=== PATIENT | female | born 1975 | race Caucasian/White ===

== ENCOUNTER → 2017-07-08 | Outpatient (CLI) | payer OTHER, BC ==
--- NOTE | 2017-07-08 09:19 | Diagnostic Imaging Report ---
EXAMINATION: 3 views of the right foot. INDICATION: Pain along the lateral aspect of the foot and bottom of the heel. FINDINGS: No fracture, dislocation or radiopaque foreign body seen. Joint alignment appears satisfactory. IMPRESSION: Unremarkable exam. Dictated by: Dictated on workstation # [id number]
== END ==
LOC: RAD 08:47
PROVIDERS: ATTEND Nurse Practitioner Family
DX: M79.671 Pain in right foot (principal)
CPT/HCPCS: 73630

== ENCOUNTER → 2017-10-14 | Outpatient (CLI) | payer BC, OTHER ==
--- NOTE | 2017-10-14 19:18 | Diagnostic Imaging Report ---
EXAMINATION: Digital mammogram bilateral screening. INDICATION: Screening. COMPARISON: This study was compared to the prior exam of 09/19/2011. At this time, there are no current complaints. The current study was also evaluated with a Computer Aided Detection (CAD) system. FINDINGS: In the interval since the prior exam the patient has undergone bilateral reduction mammoplasty. Both breasts are much smaller than noted on the prior exam. The fibroglandular tissue in each breast is heterogeneously dense. This does limit the sensitivity of this exam. There is no primary or secondary sign of malignancy noted. IMPRESSION: 1. There are postoperative changes consistent with bilateral reduction mammoplasty. There is no evidence for malignancy. 2. The patient should have her annual bilateral screening mammogram on schedule in October of 2018. ACR BI-RADS Category 1: Negative. Result letter will be mailed to the patient. Note: At least 10% of breast cancer is not imaged by mammography. Dictated by: Dictated on workstation # [id number]
== END ==
LOC: RAD 08:18
PROVIDERS: ATTEND Nurse Practitioner
DX: Z12.31 Encounter for screening mammogram for malignant neoplasm of breast (principal); Z98.890 Other specified postprocedural states
CPT/HCPCS: 77067

== ENCOUNTER 2018-09-05 22:02 | Emergency (ER) | payer BC ==
[~2018-09-05] VITALS: Ht 162.6 cm; Wt 70.3 kg
--- OUTSIDE RECORDS SUMMARY | 2018-09-05 22:07 | XMS REPORT | Continuity of Care Document ---
Author Author [facility] Organization [facility] Address Unknown Phone Unavailable Allergies Active Description Code Type Severity Reaction Onset Reported/Identified Relationship to Patient Clinical Status Yes cephalexin [id number] Drug Allergy Unknown N/A 12/11/2009 Yes penicillin G [id number] Drug Allergy Unknown N/A 12/11/2009 Yes Sulfa (Sulfonamide Antibiotics) [id number] Drug Allergy Unknown N/A 2009 Medications There is no data. Problems Date Dx Coded Attending Type Code Diagnosis Diagnosed By 08/22/2016 UNLISTED, UNLISTED A V70.5 HEALTH EXAMINATION OF DEFINED SUBPOPULATIONS 08/22/2016 UNLISTED, UNLISTED A Z02.1 ENCOUNTER FOR PRE-EMPLOYMENT EXAMINATION 10/08/2016 Ot V76.12 OTH SCREEN MAMMO-MALIGN NEOPLASM OF JOSE 07/09/2017 LISANDRO CANSECO Ot M79.671 PAIN IN RIGHT FOOT 07/10/2017 [place]AN LISANDRO L[place]ERS Ot M79.671 PAIN IN RIGHT FOOT 07/10/2017 LISANDRO CANSECO Ot M79.671 PAIN IN RIGHT FOOT 07/11/2017 LISANDRO CANSECO Ot M79.671 PAIN IN RIGHT FOOT 08/21/2017 LISANDRO CANSECO Ot M79.671 PAIN IN RIGHT FOOT 10/10/2017 LISANDRO CANSECO Ot M79.671 PAIN IN RIGHT FOOT 10/15/2017 KING SHELL Ot Z12.31 ENCNTR SCREEN MAMMOGRAM FOR MALIGNANT NE 10/15/2017 KING SHELL Ot Z98.890 OTHER SPECIFIED POSTPROCEDURAL STATES 10/27/2017 LISANDRO CANSECO Ot M79.671 PAIN IN RIGHT FOOT 10/27/2017 LISANDRO CANSECO Ot M79.671 PAIN IN RIGHT FOOT 10/27/2017 K[place] SHELL Ot Z12.31 ENCNTR SCREEN MAMMOGRAM FOR MALIGNANT NE 10/27/2017 K[place] SHELL Ot Z98.890 OTHER SPECIFIED POSTPROCEDURAL STATES 10/29/2017 K[place] SHELL Ot Z12.31 ENCNTR SCREEN MAMMOGRAM FOR MALIGNANT NE 10/29/2017 K[place] SHELL Ot Z98.890 OTHER SPECIFIED POSTPROCEDURAL STATES Procedures There is no data. Results Test Result Range - 08/22/16 15:30 Printing Assistant Janetyadira Eduardos Donor ID By Photo ID Location [place] Reason For Test Pre-Employment Temperature In Range YES Deg F 90.00-100.00 Urine Amphetamines NEGATIVE Urine Barbiturates NEGATIVE Urine Benzodiazepines NEGATIVE Urine Cocaine NEGATIVE Urine MDMA NEGATIVE Urine Methadone NEGATIVE Urine Methamphetamines NEGATIVE Urine Opiates NEGATIVE Urine Oxycodone NEGATIVE Urine PCP NEGATIVE Urine THC Metabolite NEGATIVE Encounters ACCT No. Visit Date/Time Discharge Status Pt. Type Provider Facility Loc./Unit Complaint [id number] 10/14/2017 08:18:00 10/14/2017 23:59:59 CLS Outpatient K[facility] RAD SCREENING [id number] 07/08/2017 08:47:00 07/08/2017 23:59:59 CLS Outpatient LISANDRO CANSECO [facility] RAD M79.671 [id number] 04/07/2013 07:50:00 04/07/2013 23:59:59 CLS Outpatient [id number] 09/19/2011 08:53:00 Document Registration [id number] 05/25/2018 16:48:00 05/25/2018 23:59:00 DIS Outpatient SELF, PHY [id number] 05/29/2017 12:11:00 05/29/2017 23:59:00 DIS Outpatient SELF, PHY [id number] 08/22/2016 15:04:00 08/22/2016 23:59:00 DIS Outpatient UNLISTED, UNLISTED
[2018-09-05] MEDS ORDERED: LACTATED RINGERS 1,000 ML IV ONE (22:18)
[2018-09-05 22:30] LABS: BASOPHILS % (AUTO) 1 % (0-10); EOSINOPHILS # (AUTO) 0.2 10^3/uL (0.0-0.3); EOSINOPHILS % (AUTO) 3 % (0-10); HEMATOCRIT 36 % (35-52); HEMOGLOBIN 12.1 G/DL (11.5-16.0); LYMPHOCYTES # (AUTO) 2.5 X 10^3 (1.0-4.0); LYMPHOCYTES % (AUTO) 39 % (12-44); MEAN CORPUSCULAR HEMOGLOBIN 29 PG (25-34); MEAN CORPUSCULAR HGB CONC 34 G/DL (32-36); MEAN CORPUSCULAR VOLUME 88 FL (80-99); MEAN PLATELET VOLUME 10.1 FL (7.4-10.4); MONOCYTES # (AUTO) 0.6 X 10^3 (0.0-1.0); MONOCYTES % (AUTO) 10 % (0-12); NEUTROPHILS # (AUTO) 3.1 X 10^3 (1.8-7.8); NEUTROPHILS % (AUTO) 48 % (42-75); PLATELET COUNT 245 10^3/uL (130-400); RED CELL DISTRIBUTION WIDTH 12.8 % (10.0-14.5); WHITE BLOOD COUNT 6.5 10^3/uL (4.3-11.0)
[2018-09-05 22:41] LABS: PROTHROMBIN TIME PATIENT 13.6 SEC (12.2-14.7)
[2018-09-05 22:50] LABS: ALANINE AMINOTRANSFERASE 18 U/L (0-55); ALKALINE PHOSPHATASE 47 U/L (40-136); BILIRUBIN,TOTAL 0.3 MG/DL (0.1-1.0); BUN/CREATININE RATIO 18; CALCIUM 8.9 MG/DL (8.5-10.1); CARBON DIOXIDE 22 MMOL/L (21-32); CHLORIDE 102 MMOL/L (98-107); CREATININE SERUM 0.83 MG/DL (0.60-1.30); GFR ESTIMATED > 60; GLUCOSE 126 MG/DL (70-105); MAGNESIUM 2.2 MG/DL (1.8-2.4); POTASSIUM 3.4 MMOL/L (3.6-5.0); SODIUM 135 MMOL/L (135-145); TOTAL PROTEIN 6.6 GM/DL (6.4-8.2)
--- NOTE | 2018-09-05 22:56 | ED General ---
General Chief Complaint: General Problems/Pain Stated Complaint: DIZZY,SHAKING Nursing Triage Note: PT REPORTS 1 HOUR AGO STARTING TO FEEL DIZZY, SHAKING, AND HAVING METALLIC TASTE IN HER MOUTH. PT AND STATED THIS STARTED WHILE PT WAS DOWNLOADING APPS TO A NEW TABLET. Nursing Sepsis Screen: No Definite Risk Source of Information: Patient, Spouse History of Present Illness Date Seen by Provider: Sep 05, 2018 Time Seen by Provider: 22:10 Initial Comments PT ARRIVES VIA POV PT STATES AN HOUR AGO, SHE WAS SITTING AND PUTTING "APPS" ON HER NEW TABLET AND SUDDENLY BECAME DIZZY AND SHAKEY STATES SHE HAD A METAL TASTE IN HER MOUTH STATES THEN SHE STARTED TREMBLING--"LIKE A TUNING FORK THROUGH MY WHOLE BODY" "IS LIKE I HAVE NO CONTROL-LIKE WHEN I'M TAKING STEPS IT'S LIKE I'M VIBRATING LIKE A TUNING FORK" NO PAIN ANYWHERE NO HEADACHE NO SPINNING SENSATION NO CHEST PAIN NO SHORTNESS OF BREATH NO PALPITATIONS NO NAUSEA NO ACTUAL NUMBNESS OR TINGLING NO ACTUAL SHAKING OF BODY--STATES "I CAN FEEL THE VIBRATING-LIKE SHIVERING IN MY BLOOD AND IN MY BREATH--LIKE MY BREATH IS SKIPPING" HAS HAD SIMILAR, MILDER SYMPTOMS WHEN SHE IS DRIVING AND SUN GOES THROUGH THE TREES AND SHE IS LOOKING AT THE TREES. HAS NEVER HAD ANYTHING THIS BAD HAS HAD VERTIGO IN THE PAST AND HAD SOME MECLIZINE AND HE GAVE HER ONE APPROXIMATELY 30 MINUTES AGO. LMP --ENDED 2 DAYS AGO. NORMAL. NO CONTROL PCP: DR. SOLIS. Allergies and Home Medications Allergies Coded Allergies: Sulfa (Sulfonamide Antibiotics) (Verified Allergy, Unknown, 09/05/18) cephalexin (Verified Allergy, Unknown, 09/05/18) penicillin G (Verified Allergy, Unknown, 09/05/18) Home Medications Azithromycin 500 Mg Tablet, 500 MG PO DAILY FOR INFECTION Prescribed by: ELIZABETH MCCANN on 09/06/18107 Loratadine/Pseudoephedrine 1 Each Tab.er.12h, 1 EACH PO BID Prescribed by: ELIZABETH MCCANN on 09/06/18107 Meclizine HCl 25 Mg Tablet, 25-50 MG PO Q6H Prescribed by: ELIZABETH MCCANN on 09/06/18107 Methylprednisolone 4 Mg Tab.ds.pk, 4 MG PO UD Prescribed by: ELIZABETH MCCANN on 09/06/18107 Scopolamine 1 Each Patch.td72, 1 EACH TD Q72 HOURS Prescribed by: ELIZABETH MCCANN on 09/06/18107 Patient Home Medication List Home Medication List Reviewed: Yes Review of Systems Review of Systems Constitutional: see HPI, dizziness EENTM: other (RIGHT EAR FELT LIKE THERE WAS WATER IN IT EARLIER. ); No ear discharge, No hearing loss, No ear pain, No nose congestion Respiratory: no symptoms reported Cardiovascular: no symptoms reported Gastrointestinal: no symptoms reported Genitourinary: no symptoms reported LMP: Aug 30, 2018 Musculoskeletal: no symptoms reported Skin: no symptoms reported Psychiatric/Neurological: See HPI, Anxiety; Denies Headache, Denies Numbness, Denies Paresthesia, Denies Seizure; Other (PER HPI) Hematologic/Lymphatic: No Symptoms Reported Past Qqmxiql-Pxdtiy-Zltcnw Hx Patient Social History Alcohol Use: Denies Use Recreational Drug Use: No Smoking Status: Never a Smoker Recent Foreign Travel: No Contact w/Someone Who Travel: No Recent Infectious Disease Expo: No Past Medical History Surgeries: Yes (BREAST REDUCTION 2011) Breast Respiratory: No Cardiac: No Neurological: No : No Reproductive Disorders: No Genitourinary: No Gastrointestinal: No Musculoskeletal: No Endocrine: No HEENT: No Cancer: No Psychosocial: No Integumentary: No Blood Disorders: No Adverse Reaction/Blood Tranf: No Physical Exam Vital Signs Vital Signs - First Documented 09/05/18 22:10 Temp 97.2 Pulse 81 Resp 21 B/P (MAP) 137/83 (101) Pulse Ox 99 Capillary Refill : Less Than 3 Seconds Height, Weight, BMI Height: 5'4.00" Weight: 155lbs. oz. 70.223372ln; BMI Method:Stated General Appearance: No Apparent Distress, WD/WN, Anxious, Other (TREMULOUS) HEENT: PERRL/EOMI, Pharynx Normal, Other (RIGHT TM INFLAMED AND INJECTED WITH EFFUSION. ) Neck: Full Range of Motion, Normal Inspection, Non Tender, Supple; No Carotid Bruit, No JVD Respiratory: Normal Breath Sounds, No Accessory Muscle Use, No Respiratory Distress Cardiovascular: Regular Rate, Rhythm, No Edema, No JVD, No Murmur, Normal Peripheral Pulses Gastrointestinal: Non Tender, Soft Back: Normal Inspection Extremity: Normal Capillary Refill, Normal Inspection, Normal Range of Motion, Non Tender, No Calf Tenderness, No Pedal Edema Neurologic/Psychiatric: Alert, Oriented x3, No Motor/Sensory Deficits, ammunition assembly laborer II- XII Norm as Tested, Other (ANXIOUS) Skin: Normal Color, Warm/Dry Progress/Results/Core Measures Suspected Sepsis Recent Fever Within 48 Hours: No Infection Criteria Present: None New/Unexplained Altered Menta: No Sepsis Screen: No Definite Risk SIRS Temperature:97.2 Pulse: 81 Respiratory Rate: 21 Laboratory Tests 09/05/18 22:23: White Blood Count 6.5 Blood Pressure 137 /83 Mean: 101 Laboratory Tests 09/05/18 22:23: Creatinine 0.83, INR Comment 1.0, Platelet Count 245, Total Bilirubin 0.3 Results/Orders Lab Results Laboratory Tests Test 09/05/18 22:23 09/05/18 23:05 Range/Units White Blood Count 6.5 4.3-11.0 10^3/uL Red Blood Count 4.12 L 4.35-5.85 10^6/uL Hemoglobin 12.1 11.5-16.0 G/DL Hematocrit 36 35-52 % Mean Corpuscular Volume 88 80-99 FL Mean Corpuscular Hemoglobin 29 25-34 PG Mean Corpuscular Hemoglobin Concent 34 32-36 G/DL Red Cell Distribution Width 12.8 10.0-14.5 % Platelet Count 245 130-400 10^3/uL Mean Platelet Volume 10.1 7.4-10.4 FL Neutrophils (%) (Auto) 48 42-75 % Lymphocytes (%) (Auto) 39 12-44 % Monocytes (%) (Auto) 10 0-12 % Eosinophils (%) (Auto) 3 0-10 % Basophils (%) (Auto) 1 0-10 % Neutrophils # (Auto) 3.1 1.8-7.8 X 10^3 Lymphocytes # (Auto) 2.5 1.0-4.0 X 10^3 Monocytes # (Auto) 0.6 0.0-1.0 X 10^3 Eosinophils # (Auto) 0.2 0.0-0.3 10^3/uL Basophils # (Auto) 0.0 0.0-0.1 10^3/uL Prothrombin Time 13.6 12.2-14.7 SEC INR Comment 1.0 0.8-1.4 Activated Partial Thromboplast Time 37 H 24-35 SEC Sodium Level 135 135-145 MMOL/L Potassium Level 3.4 L 3.6-5.0 MMOL/L Chloride Level 102 98-107 MMOL/L Carbon Dioxide Level 22 21-32 MMOL/L Anion Gap 11 5-14 MMOL/L Blood Urea Nitrogen 15 7-18 MG/DL Creatinine 0.83 0.60-1.30 MG/DL Estimat Glomerular Filtration Rate > 60 BUN/Creatinine Ratio 18 Glucose Level 126 H 70-105 MG/DL Calcium Level 8.9 8.5-10.1 MG/DL Corrected Calcium 8.9 8.5-10.1 MG/DL Magnesium Level 2.2 1.8-2.4 MG/DL Total Bilirubin 0.3 0.1-1.0 MG/DL Aspartate Amino Transf (AST/SGOT) 17 5-34 U/L Alanine Aminotransferase (ALT/SGPT) 18 0-55 U/L Alkaline Phosphatase 47 40-136 U/L Total Protein 6.6 6.4-8.2 GM/DL Albumin 4.0 3.2-4.5 GM/DL Free Thyroxine 1.03 0.70-1.48 NG/DL TSH [place] Testing 0.28 L 0.35-4.94 UIU/ML Serum Test, Qualitative NEGATIVE NEGATIVE Serum Alcohol < 10 <10 MG/DL Urine Color YELLOW Urine Clarity CLEAR Urine pH 6 5-9 Urine Specific Hert[place] 1.020 1.016-1.022 Urine Protein NEGATIVE NEGATIVE Urine Glucose (UA) NEGATIVE NEGATIVE Urine Ketones NEGATIVE NEGATIVE Urine Nitrite NEGATIVE NEGATIVE Urine Bilirubin NEGATIVE NEGATIVE Urine Urobilinogen NORMAL NORMAL MG/DL Urine Leukocyte Esterase NEGATIVE NEGATIVE Urine RBC (Auto) NEGATIVE NEGATIVE Urine RBC NONE /HPF Urine WBC NONE /HPF Urine Squamous Epithelial Cells RARE /HPF Urine Crystals NONE /LPF Urine Bacteria TRACE /HPF Urine Casts NONE /LPF Urine White Blood Cell Casts /LPF Urine Mucus NEGATIVE /LPF Urine Culture Indicated NO Urine Opiates Screen NEGATIVE NEGATIVE Urine Oxycodone Screen NEGATIVE NEGATIVE Urine Methadone Screen NEGATIVE NEGATIVE Urine Propoxyphene Screen NEGATIVE NEGATIVE Urine Barbiturates Screen NEGATIVE NEGATIVE Ur Tricyclic Antidepressants Screen NEGATIVE NEGATIVE Urine Phencyclidine Screen NEGATIVE NEGATIVE Urine Amphetamines Screen NEGATIVE NEGATIVE Urine Methamphetamines Screen NEGATIVE NEGATIVE Urine Benzodiazepines Screen NEGATIVE NEGATIVE Urine Cocaine Screen NEGATIVE NEGATIVE Urine Cannabinoids Screen NEGATIVE NEGATIVE My Orders Orders - ELIZABETH MCCANN DO Saline Lock/Iv-Start (09/05/18 22:18) Ekg Tracing (09/05/18 22:18) Monitor-Rhythm Ecg Trace Only (09/05/18 22:18) Alcohol (09/05/18 22:18) Cbc With Automated Diff (09/05/18 22:18) Comprehensive Metabolic Panel (09/05/18 22:18) Drug Screen Stat (Urine) (09/05/18 22:18) Hcg,Qualitative Serum (09/05/18 22:18) Magnesium (09/05/18 22:18) Protime With Inr (09/05/18 22:18) Partial Thromboplastin Time (09/05/18 22:18) Thyroid Analyzer (09/05/18 22:18) Ua Culture If Indicated (09/05/18 22:18) Saline Lock/Iv-Start (09/05/18 22:18) Lactated Ringers (Lr 1000 Ml Iv Solution (09/05/18 22:18) Ct Head Wo (09/05/18 22:18) Free T4 (Free Thyroxine) (09/05/18 22:23) Scopolamine Patch (Transderm-Scop Patch) (09/06/18 01:15) Azithromycin Tablet (Zithromax Tablet) (09/06/18 01:15) Medications Given in ED Current Medications Medications Dose Ordered Sig/Kendy Route Start Time Stop Time Status Last Admin Dose Admin Azithromycin 500 mg ONCE ONCE PO 09/06/18 01:15 09/06/18 01:16 DC 09/06/18 01:46 500 MG Scopolamine 1.5 mg ONCE ONCE TD 09/06/18 01:15 09/06/18 01:16 DC 09/06/18 01:46 1.5 MG Vital Signs/I&O 09/06/18 01:48 Temp 98.2 Pulse 58 Resp 20 B/P (MAP) 112/69 (83) Pulse Ox 99 Capillary Refill : Less Than 3 Seconds Blood Pressure Mean: 101 Progress Note : Progress Note SYMPTOMS MUCH IMPROVED AND ESSENTIALLY RESOLVED AT DISMISSAL PT ABLE TO WALK TO AND FROM BATHROOM AND OUT OF ER ON HER OWN. ECG Initial ECG Impression Date: Sep 05, 2018 Initial ECG Impression Time: 22:45 Initial ECG Rate: 70 Initial ECG Rhythm: Normal Sinus Initial ECG Impression: Normal Initial ECG Comparisson: No Previous ECG Available Diagnostic Imaging Comments CT HEAD--NO ACUTE PROCESS, PER [facility] VIA FAX @ [phone] Reviewed: Reviewed by Me Departure Impression Primary Impression: Vertigo Additional Impression: Right otitis media with effusion Disposition: 01 HOME, SELF-CARE Condition: Improved Departure-Patient Inst. Referrals: JUWAN SOLIS MD (PCP/Family) Primary Care Physician Patient Instructions: Ear Infections (Otitis Media) (DC), Serous Otitis Media ( DC), VERTIGO, Vertigo (a Type of Dizziness) (DC), Vestibular Exercises Add. Discharge Instructions: SLOW POSITION CHANGES FOLLOW UP WITH DR. SOLIS IN 2-3 DAYS IF NO BETTER All discharge instructions reviewed with patient and/or family. Voiced understanding. Scripts Meclizine HCl (Meclizine HCl) 25 Mg Tablet 25-50 MG PO Q6H for Dizziness, #30 TAB Prov: ELIZABETH MCCANN DO 09/06/18 Scopolamine (Transderm-Scop) 1 Each Patch.td72 1 EACH TD Q72 HOURS for Dizziness, #3 PATCH Prov: ELIZABETH MCCANN DO 09/06/18 Loratadine/Pseudoephedrine (Claritin-D 12 Hour Tablet) 1 Each Tab.er.12h 1 EACH PO BID for Congestion, #30 TAB Prov: ELIZABETH MCCANN DO 09/06/18 Methylprednisolone (Medrol) 4 Mg Tab.ds.pk 4 MG PO UD, #1 PKG Prov: ELIZABETH MCCANN DO 09/06/18 Azithromycin (Zithromax) 500 Mg Tablet 500 MG PO DAILY, #5 TAB FOR INFECTION Prov: ELIZABETH MCCANN DO 09/06/18 ELIZABETH MCCANN DO Sep 05, 2018 22:56
[2018-09-05 23:10] LABS: TSH (THYROID ANALYZER) 0.28 UIU/ML (0.35-4.94)
[2018-09-05 23:24] LABS: AMPHETAMINE SCREEN, URINE NEGATIVE (NEGATIVE); BARBITURATE SCREEN URINE NEGATIVE (NEGATIVE); BENZODIAZEPINES SCREEN URINE NEGATIVE (NEGATIVE); CANNABINOID SCREEN, URINE NEGATIVE (NEGATIVE); COCAINE SCREEN URINE NEGATIVE (NEGATIVE); METHADONE STAT NEGATIVE (NEGATIVE); METHAMPHETAMINE SCREEN URINE S NEGATIVE (NEGATIVE); OPIATE SCREEN URINE NEGATIVE (NEGATIVE); OXYCODONE STAT NEGATIVE (NEGATIVE); PROPOXYPHENE STAT NEGATIVE (NEGATIVE); TRICYCLIC ANTIDEPRESSANTS SCRE NEGATIVE (NEGATIVE)
[2018-09-06 00:01] LABS: BACTERIA,URINE TRACE /HPF; BILIRUBIN,URINE NEGATIVE (NEGATIVE); CLARITY,URINE CLEAR; COLOR,URINE YELLOW; GLUCOSE, URINE (UA) NEGATIVE (NEGATIVE); KETONES,URINE NEGATIVE (NEGATIVE); LEUKOCYTE ESTERASE ,URINE NEGATIVE (NEGATIVE); NITRITE,URINE NEGATIVE (NEGATIVE); PH,URINE 6 (5-9); PROTEIN,URINE NEGATIVE (NEGATIVE); SQUAMOUS EPITHELIAL CELL,UR RARE /HPF; UROBILINOGEN,URINE NORMAL (NORMAL)
[2018-09-06 00:10] LABS: FREE T4 (FREE THYROXINE) 1.03 NG/DL (0.70-1.48)
[2018-09-06] MEDS ORDERED: METH4TAB PO (01:08)
[2018-09-06] MEDS ORDERED: MECL-106 PO (01:08)
[2018-09-06] MEDS ORDERED: SCOP1PAT11 TD (01:08)
[2018-09-06] MEDS ORDERED: LORA1TAB59 PO (01:08)
[2018-09-06] MEDS ORDERED: AZIT500T PO (01:08)
[2018-09-06] MEDS ORDERED: SCOPOLAMINE 1.5 MG (TRANSDERM-SCOP) PATCH TD ONE (01:15)
[2018-09-06] MEDS ORDERED: AZITHROMYCIN 250 MG TAB (ZITHROMAX) PO ONE (01:15)
[2018-09-06 01:48] VITALS: BP 112/69
--- NOTE | 2018-09-06 06:38 | Diagnostic Imaging Report ---
PROCEDURE: CT head without contrast. TECHNIQUE: Multiple contiguous axial images were obtained through the brain without the use of intravenous contrast. INDICATION: Dizziness COMPARISON: None. FINDINGS: The ventricles are normal in size, shape and position. There is no midline shift or mass effect. There is no hemorrhage or evidence of acute ischemia. There is no extra-axial fluid collection. Paranasal sinuses, mastoids and bony calvarium are normal. IMPRESSION: Negative CT head. Agree with preliminary report. Dictated by: Dictated on workstation # [id number]
== END 2018-09-06 01:48 | disposition home or self-care (01) ==
LOC: EDUNIT# 22:02 → ER 22:03
DX: H65.91 Unspecified nonsuppurative otitis media, right ear (principal); Z88.2 Allergy status to sulfonamides; Z88.1 Allergy status to other antibiotic agents; Z88.0 Allergy status to penicillin; Z79.52 Long term (current) use of systemic steroids; Z98.890 Other specified postprocedural states
CPT/HCPCS: 36415; 70450; 80053; 80306; 80320; 81000; 83735; 84439; 84443; 84703; 85025; 85610; 85730; 93041

== ENCOUNTER → 2020-10-20 | Outpatient (CLI) | payer BC ==
[~2020-10-20] MED LIST: AZIT500T PO; LORA1TAB59 PO; MECL-149 PO; METH4TAB PO; SCOP1PAT11 TD
--- NOTE | 2020-10-23 08:26 | Diagnostic Imaging Report ---
Indication: Routine screening. Comparison is made with prior mammogram from 10/14/2017. 2-D and 3-D bilateral screening mammography was performed with CAD. Both breast are heterogeneously dense, limiting the sensitivity of mammography. The overall parenchymal pattern is stable. No mass or malignant appearing microcalcifications are seen. Axillae are unremarkable. IMPRESSION: BI-RADS Category 1 No mammographic features suspicious for malignancy are identified. ACR BI-RADS Category 1: Negative. Result letter will be mailed to the patient. Note: At least 10% of breast cancer is not imaged by mammography. Dictated by: Dictated on workstation # [id number]
== END ==
LOC: RAD 14:15
PROVIDERS: ATTEND Obstetrics & Gynecology
DX: Z12.31 Encounter for screening mammogram for malignant neoplasm of breast (principal)
CPT/HCPCS: 77063; 77067

== ENCOUNTER 2022-10-07 05:28 | Outpatient (CLI) | payer BC ==
[~2022-10-07] VITALS: Ht 162.6 cm; Wt 63.6 kg
[~2022-10-07 05:28] MED LIST changes: +SCOP1PAT10 TD; -SCOP1PAT11 TD
[2022-10-07] MEDS ORDERED: AMIT150T PO (12:09)
== END 2022-10-07 12:16 | disposition home or self-care (01) ==
LOC: PREOP 05:28
PROVIDERS: ATTEND Internal Medicine
DX: Z01.818 Encounter for other preprocedural examination (principal)

== ENCOUNTER 2022-10-11 07:52 | Day surgery (SDC) | payer BC ==
--- NOTE | 2022-10-04 06:26 | HISTORY AND PHYSICAL ---
COLONOSCOPY HISTORY AND PHYSICAL HISTORY OF PRESENT ILLNESS: The patient is a 46-year-old white female who is seen for yearly wellness evaluation. She did have a past history of iron deficiency anemia, felt to be due to heavy menses and has been taking some fiber gummies regular 325 even every other day, iron was causing constipation. She has not had any further irregular bleeding nor heavier periods than usual. She is not aware of any family history for colon cancer and denies bright red blood per rectum, melena, abdominal pain, nausea, change in appetite, or change in weight. MEDICATIONS: She is taking amitriptyline 50 mg at bedtime for insomnia. No other prescription medication. FAMILY HISTORY: Not aware of any family history for colon cancer. Mother has a history of hypertension as does her father, both are alive in their early 70s. SOCIAL HISTORY: She is employed, with no past smoking or drinking history. PHYSICAL EXAMINATION: GENERAL: Reveals a white female who appeared to be in no acute distress. Weight is stable at 140.6 pounds. VITAL SIGNS: Blood pressure 120/80. HEENT: Unremarkable. Ear canals clear with normal TMs. NECK: Revealed no JVD, adenopathy or bruits. CHEST: Clear to auscultation. CARDIOVASCULAR: Reveals a regular rate and rhythm without murmur, S3, or S4. ABDOMEN: Soft, supple without mass, organomegaly, or tenderness. EXTREMITIES: No cyanosis, clubbing or edema. SKIN: Evaluation reveals no suspicious nevi. ASSESSMENT: Stable wellness evaluation. We did obtain chemistry panel, lipid panel, TSH and CBC. Her hemoglobin is up significantly at 12.3 and her MCV was up to 89.7 with a platelet count 244,000. Chemistry panel was normal. TSH was normal at 0.64 with favorable lipid parameters HDL of 73, triglyceride level of 44, LDL 123 and total cholesterol 205. PLAN: Stable wellness evaluation. The patient is being set up for her first screening colonoscopy. Prep instructions were given and questions were answered. Job ID: [id number] DocumentID: [id number] Dictated Date: 09/23/2022 14:14:36 Blender Laborer Date: 09/23/2022 14:53:00 Dictated By: JUWAN SOLIS MD
[~2022-10-11] VITALS: Ht 162.6 cm; Wt 63.6 kg
[~2022-10-11 07:52] MED LIST changes: +AMIT150T PO
[2022-10-11] MEDS ORDERED: LACTATED RINGERS 1,000 ML IV STA (07:56)
[2022-10-11 08:15] VITALS: BP 115/71
--- NOTE | 2022-10-11 08:23 | Pre-Op Note & Conscious Sedat ---
Pre-Operative Progress Note Date H&P Reviewed: Oct 11, 2022 Time H&P Reviewed: 08:22 History & Physical: H&P Reviewed, Patient Examed, No changes noted Pre-Op Diagnosis: screening Conscious Sedation Pre-Proced ASA Score 1 For ASA 3 and 4: Consider anesthesia and medical clearance. Also, for patients with a history of failed moderate sedation consider anesthesia. Airway Lungs Heart ASA score ASA 1: a normal healthy patient ASA 2: a patient with a mild systemic disease (mid diabetes, controlled hypertension, obesity ASA 3: a patient with a severe systemic disease that limits activity (angina, COPD, prior Myocardial infarction) ASA 4: a patient with an incapacitating disease that is a constant threat to life (CHF, renal failure) ASA 5: a moribund patient not expected to survive 24 hrs. (ruptured aneurysm) ASA 6: a declared brain- patient whose organs are being harvested. For emergent operations, add the letter E after the classification Mallampati Classification Grade 1 Sedation Plan Analgesia, Amnesia, Plan communicated to team members, Discussed options with patient/fam, Discussed risks with patient/fam The patient is an appropriate candidate to undergo the planned procedure, sedation, and anesthesia. The patient immediately re-assessed prior to indication. JUWAN SOLIS MD Oct 11, 2022 08:23
[2022-10-11] MEDS ORDERED: PROPOFOL INJECTION 50 ML IV ONE (08:52)
--- NOTE | 2022-10-11 09:30 | Anesthesia-General Post-Op ---
MAC Patient Condition Mental Status/LOC: Same as Preop Cardiovascular: Satisfactory Nausea/Vomiting: Absent Respiratory: Satisfactory Pain: Controlled Complications: Absent Post Op Complications Complications None Follow Up Care/Instructions Patient Instructions None needed. Anesthesiology Discharge Order Discharge Order Patient is doing well, no complaints, stable vital signs, no apparent adverse anesthesia problems. No complications reported per nursing. DANA CR CRNA Oct 11, 2022 09:30
--- NOTE | 2022-10-11 09:31 | Progress Note-Post Operative ---
Post-Procedure Note Physician (s)/Police Magistrate (s) Physician JUWAN SOLIS MD Pre-Procedure Diagnosis Pre-Procedure Diagnosis: screening Post-Procedure Diagnosis Post-operative diagnosis: Prior to undergoing colonoscopy digital rectal evaluation was performed. Anal sphincter tone was normal and the perianal reflexes intact. No abnormalities noted on digital inspection anal canal or distal rectal vault. The colonoscope was then inserted into the rectum and under direct visualization advanced to the cecum. The cecum was identified by identification of the ileocecal valve and the cecal strap. Photographic documentation was obtained. Quality the prep was fair. Careful inspection was made as the colonoscope was withdrawn. Findings there are no evidence for internal or external hemorrhoids in the rectum sigmoid colon and descending colon were unremarkable. Present at the splenic flexure was a sessile 5 mm adenomatous appearing polyp was biopsied and ablated and submitted for histopathology with no subsequent blood loss. Present the proximal transverse colon as well as hepatic flexure were 2two 4 mm sessile polyps that were photographed biopsied and ablated with no blood loss. The ascending colon and cecum were unremarkable. Assessment: 1. 3 4 toThree 4 to 5 mm sessile polyps removed from the splenic flexure hepatic flexure and proximal transverse colon via hot forceps. Will await histopathology of report before recommending future surveillance colonoscopy. No other abnormalities are noted on today's colonoscopy under fair prep conditions. JUWAN SOLIS MD Oct 11, 2022 09:30
[2022-10-11 09:35] VITALS: BP 113/81
[2022-10-11 10:14] VITALS: BP 116/76
== END 2022-10-11 10:13 | disposition home or self-care (01) ==
LOC: ENDO 07:52
PROVIDERS: ATTEND Internal Medicine
DX: Z12.11 Encounter for screening for malignant neoplasm of colon (principal); D12.3 Benign neoplasm of transverse colon
CPT/HCPCS: 84703